=== PATIENT | male | born 1960 | race Caucasian/White ===

== ENCOUNTER 2021-04-22 19:32 | Inpatient (IN) | payer BC ==
[~2021-04-22] VITALS: Ht 170.2 cm; Wt 91.6 kg
--- NOTE | 2021-04-22 19:35 | NUR ---
BB RA FROM HOME FOR SYNCOPAL EPISODE. BP AT 1915 75/40. PT A/OX4. TOLERATING R/A WELL.
[2021-04-22 20:30] LABS: BASOPHILS % (AUTO) 0.7 % (0.0-2.0); EOSINOPHILS % (AUTO) 1.8 % (0.0-6.0); HEMATOCRIT 42 % (39-51); LYMPHOCYTES # (AUTO) 2.4 K/uL (0.8-4.8); LYMPHOCYTES % (AUTO) 34.4 % (20.0-44.0); MEAN CORPUSCULAR HGB CONC 33 g/dl (31.0-36.0); MEAN CORPUSCULAR VOLUME 90 fL (80-96); MONOCYTES # (AUTO) 0.6 K/uL (0.1-1.30); MONOCYTES % (AUTO) 8.8 % (2.0-12.0); NEUTROPHILS # (AUTO) 3.7 K/uL (1.8-8.9); NEUTROPHILS % (AUTO) 54.3 % (43.0-81.0); PLATELET COUNT (AUTO) 220 K/uL (150-450); RED BLOOD CELL COUNT(AUTO) 4.74 MIL/uL (4.5-6.0); WHITE BLOOD COUNT (AUTO) 6.9 K/uL (4.3-11.0)
[2021-04-22] MEDS ORDERED: IV NS 0.9% 1,000 ML BAG IV ONE (20:30)
--- NOTE | 2021-04-22 20:34 | NUR ---
BLOOD WORK DRAWN
[2021-04-22 20:53] LABS: CARBON DIOXIDE 29 mmol/L (21-32); CHLORIDE 104 mmol/L (98-107); GLUCOSE 161 mg/dL (74-106); POTASSIUM 3.9 mmol/L (3.5-5.1); SODIUM SERUM 140 mmol/L (136-145); UREA NITROGEN, BLOOD 13 mg/dL (7-18)
--- NOTE | 2021-04-22 20:54 | NUR ---
PT TAKEN TO CT
--- NOTE | 2021-04-22 20:54 | NUR ---
PT RETURNED TO ER ROOM 2
[2021-04-22 20:58] LABS: ALANINE AMINOTRANSFERASE 23 U/L (12-78); ALBUMIN 3.3 g/dL (3.4-5.0); ALKALINE PHOSPHATASE 34 U/L (46-116); ASPARTATE AMINOTRANSFERASE 15 U/L (15-37); BILIRUBIN,DIRECT 0.1 mg/dL (0.0-0.2); BILIRUBIN,TOTAL 0.6 mg/dL (0.2-1.0); TOTAL PROTEIN, SERUM 6.1 g/dL (6.4-8.2)
--- NOTE | 2021-04-22 21:00 | NUR ---
COVID SWAB COLLECTED AND SENT TO LAB
--- NOTE | 2021-04-22 21:30 | NUR ---
CALLED [facility], PAGED LINNEA
[2021-04-22] MEDS ORDERED: MORPHINE SULFATE INJ 2 MG/ML DISP.SYRIN IV PRN (22:00)
[2021-04-22] MEDS ORDERED: ACETAMINOPHEN 325 MG TABLET PO PRN (22:00)
[2021-04-22] MEDS ORDERED: hydrALAZINE HCL IV 20 MG VIAL IV PRN (22:00)
[2021-04-22] MEDS: IV NS 0.9% 1,000 ML IV SCH (22:00)
[2021-04-22] MEDS ORDERED: LABETALOL 20 MG/4 ML VIAL IV PRN (22:00)
[2021-04-22] MEDS ORDERED: ONDANSETRON HCL/PF 4 MG/2 ML VIAL IVP PRN (22:00)
--- NOTE | 2021-04-22 22:50 | NUR ---
INITIATED LFA #20G ;PATENT AND INTACT
[2021-04-22] MEDS ORDERED: INSULIN REGULAR, HUMAN 100 UNIT/ML 3 ML VIAL SQ PRN (23:00)
[2021-04-22] MEDS ORDERED: DEXTROSE 50%-WATER 50 ML DISP.SYRIN IV PRN (23:00)
--- NOTE | 2021-04-22 23:30 | NUR ---
PT DENIES FEELING DIZZY, AMBLE TO AMBULATE WITH STABLE GAIT. VSS. SAFETY MEASURES IN PLACE
[2021-04-23 04:36] LABS: BASOPHILS % (AUTO) 0.6 % (0.0-2.0); EOSINOPHILS % (AUTO) 1.6 % (0.0-6.0); HEMATOCRIT 44 % (39-51); HEMOGLOBIN 14.5 g/dL (13.5-17.5); LYMPHOCYTES # (AUTO) 2.4 K/uL (0.8-4.8); LYMPHOCYTES % (AUTO) 30.1 % (20.0-44.0); MEAN CORPUSCULAR HGB CONC 33 g/dl (31.0-36.0); MEAN CORPUSCULAR VOLUME 90 fL (80-96); MONOCYTES # (AUTO) 0.8 K/uL (0.1-1.30); MONOCYTES % (AUTO) 10.4 % (2.0-12.0); NEUTROPHILS # (AUTO) 4.5 K/uL (1.8-8.9); NEUTROPHILS % (AUTO) 57.3 % (43.0-81.0); PLATELET COUNT (AUTO) 221 K/uL (150-450); RED BLOOD CELL COUNT(AUTO) 4.85 MIL/uL (4.5-6.0); WHITE BLOOD COUNT (AUTO) 7.9 K/uL (4.3-11.0)
[2021-04-23 04:57] LABS: ALBUMIN 3.3 g/dL (3.4-5.0); BILIRUBIN,TOTAL 0.8 mg/dL (0.2-1.0); CALCIUM, SERUM 8.3 mg/dL (8.5-10.1); MAGNESIUM 2.1 mg/dL (1.8-2.4); PHOSPHORUS 3.3 mg/dL (2.5-4.9); POTASSIUM 4.5 mmol/L (3.5-5.1); TOTAL PROTEIN, SERUM 6.3 g/dL (6.4-8.2)
--- NOTE | 2021-04-23 06:08 | NUR ---
313-2 REPORT AFTER CHANGE OF SHIFT
--- NOTE | 2021-04-23 06:32 | NUR ---
TEXTED DR. WAGONER FOR MRI APPROVAL.
--- NOTE | 2021-04-23 07:03 | NUR ---
pt taken to CT
--- NOTE | 2021-04-23 07:14 | NUR ---
REPORT GIVEN TO MATT Boyd RN
[2021-04-23] MEDS: BLOOD SUGAR DIAGNOSTIC 1 EACH STRIP IN SCH ×2 (07:45→12:06)
--- NOTE | 2021-04-23 07:51 | NUR ---
BLOOD SUGAR CHECK DONE 101 NO COVERAGE
--- NOTE | 2021-04-23 07:52 | NUR ---
TRANSFERED TO ROOM 313 IN STABLE CONDITION. ALERT ORIENTED X4 NO RESPIRATORY DISTRESS NOTED. DENIES ANY PAIN OR DISCOMFORT.
--- NOTE | 2021-04-23 08:00 | NUR ---
CREDIT DIRECTOR ADMITTING NOTES RECEIVED PATIENT FROM E.R VIA ANATOLIY, PATIENT IS AWAKE, A&O X 4 NOT IN ANY FORM OF ACUTE DISTRESS NOTED. ON ROOM AIR TOLERATING WELL, PATIENT ABLE TO WALK UPON TRANSFER TO BED. VITAL SIGNS TAKEN AND RECORDED. IV ACCESS ON LFA G#20, PATENT AND FLUSHES WELL. SKIN IS INTACT. HOOKED TO EXTERNAL MONITOR SHOWING SR HR AT 70'S. SAFETY PRECAUTIONS OBSERVED: BED ON LOWEST LOCKED POSITION, SIDE RAILS UP X 2, CALL LIGHT WITHIN EASY REACH. INSTRUCTED TO CALL FOR ASSISTANCE WHEN NEEDED. PATIENT VERBALIZED UNDERSTANDING. WILL CONTINUE TO MONITOR ACCORDINGLY.
[2021-04-23] MEDS ORDERED: ROSU10TA29 PO (08:39)
[2021-04-23] MEDS ORDERED: FLUT16SP BNOSTRILS (08:39)
[2021-04-23] MEDS ORDERED: DOXA4TAB3 PO (08:39)
[2021-04-23] MEDS ORDERED: METF-881 PO (08:39)
[2021-04-23] MEDS ORDERED: TADA5TAB13 PO (08:39)
[2021-04-23] MEDS ORDERED: OLME1TAB88 PO (08:39)
[2021-04-23] MEDS ORDERED: DEXT20TA6 PO (08:39)
[2021-04-23 09:09] VITALS: BP_SYST 125; BP_SYST 130; BP_SYST 141; BP_DIAS 81; BP_DIAS 84; BP_DIAS 90
[2021-04-23] MEDS: IV NS 0.9% 1,000 ML IV SCH (09:32)
[2021-04-23 12:00] VITALS: BP 131/86
[2021-04-23] MEDS ORDERED: CARBOXYMETHYLCELLULOSE SODIUM 0.4 ML DROPERETTE EACHEYE PRN (12:00)
--- NOTE | 2021-04-23 14:42 | NUR ---
RN NOTES DISCHARGED PATIENT IN STABLE CONDITION, VS WITHIN NORMAL LIMITS. HEALTH EDUCATION AND HOME MEDICATION INSTRUCTIONS INSTRUCTIONS PROVIDED. INSTRUCTED TO FOLLOW UP WITH DR. HUDDLESTON IN 1 WEEK. BELONGINGS ACCOUNTED AND SIGNED FOR. IV ACCESS REMOVED, COVERED WITH GAUZE AND SECURED WITH TAPE. NO BLEEDING NOTED. WHEELED TO LOBBY WITH , LEFT HOSPITAL IN STABLE CONDITION. MD AND CHARGE NURSE AWARE OF DISCHARGE.
== END 2021-04-23 14:35 | disposition home or self-care (01) | DRG 641 ==
LOC: ER 20:05 → TRANSITION 23:28 → TELE 04-23 07:41
PROVIDERS: ADMIT Internal Medicine; ATTEND Student in an Organized Health Care Education/Training Program
DX: E86.0 Dehydration (principal); R55 Syncope and collapse; E87.2 Acidosis; I10 Essential (primary) hypertension; E11.9 Type 2 diabetes mellitus without complications; Z20.822 Contact with and (suspected) exposure to COVID-19; Z79.84 Long term (current) use of oral hypoglycemic drugs; I95.9 Hypotension, unspecified
CPT/HCPCS: 36415; 70450-TC; 70551-TC; 71045-TC; 80048-TC; 80053-TC; 80076-TC; 82962-TC; 83605-TC; 83735-TC; 84100-TC; 84484-TC; 85025-TC; 85730-TC; 87081-TC; 93307-TC; 93880-TC; C9803; G0378; J1815; J7030